=== PATIENT | female | born 1965 | race Caucasian/White ===

== ENCOUNTER 2018-07-24 16:06 | Emergency (ER) | payer OTHER ==
--- NOTE | 2018-07-24 16:27 | PDOC ---
History of Present Illness - General Chief Complaint: Injury Stated Complaint: LEFT ARM RT FOOT PAIN Time Seen by Provider: 07/24/18 16:08 History Source: Patient Exam Limitations: No Limitations - History of Present Illness Initial Comments: 07/24/18 16:31 52 yo F with no past medical history presents to the emergency department after a fall that occurred today at approximately 1pm. Per the patient, she states that she was walking in between a car and sidewalk when she slipped and landed on the ground. Per the patient, she immediately began having right ankle pain and left shoulder pain. Denies head trauma and LOC. Fall was unwitnessed. 07/24/18 16:54 Past History - Past Medical History Allergies/Adverse Reactions: Allergies Allergy/AdvReac Type Severity Reaction Status Date / Time sulfur [From Sulfur-8] Allergy Verified 08/30/15 19:27 Home Medications: Ambulatory Orders Nitrofurantoin Monohyd/M-Cryst [Macrobid -] 100 mg PO BID #14 capsule 08/30/15 - Suicide/Smoking/Psychosocial Hx Smoking Status: No Smoking History: Never smoked Have you smoked in the past 12 months: No Number of Cigarettes Smoked Daily: 0 Hx Alcohol Use: No Drug/Substance Use Hx: No Substance Use Type: None *DC/Admit/Observation/Transfer Diagnosis at time of Disposition: Fall Qualifiers: Encounter type: initial encounter Qualified Code(s): W19.XXXA - Unspecified fall, initial encounter - Discharge Dispostion Disposition: HOME Decision to Admit order: No - Referrals Referrals: Haris Morton MD [Staff Physician] - [facility] [place] [Provider Group] - Patient Instructions Printed Discharge Instructions: How to Prevent Falls Additional Instructions: you were seen in the emergency department for the evaluation of your ankle and shoulder after your fall. there was no fracture or dislocation noted on your xrays. please take motrin and tylenol as directed on the label. please follow up with your primary medical doctor or the one referred to you 1 week after discharge for follow up care and management. please follow up with the orthopedics doctor in 1 week after discharge if you continue to have pain or difficulty moving your should and ankle. please return to the emergency department if you have worsening pain or new concerning symptosm such as confusion, focal weakness, disorientation, headaches, nausea with uncontrollable vomiting, or if your foot or arm have worsening numbness or discoloration. thank you. - Post Discharge Activity
[2018-07-24] MEDS ORDERED: ACETAMINOPHEN 325 MG TABLET (FP) PO ONE (16:30)
[2018-07-24] MEDS ORDERED: ACETAMINOPHEN 325 MG TABLET (FP) ONE (17:03)
[2018-07-24 17:12] VITALS: BP 118/83; PULSE 80; TEMP 98.8; BMI 25.0
--- NOTE | 2018-07-24 17:30 | PDOC ---
Attending Attestation - Resident Resident Name: Ángel Fonseca - ED Attending Attestation I have performed the following: I have examined & evaluated the patient, The case was reviewed & discussed with the resident, I agree w/resident's findings & plan, Exceptions are as noted - HPI HPI: 07/24/18 17:22 52 F presenting to ED after tripping and falling. Pt was walking to her car when she tripped, landing on her L shoulder. Denies headstrike/LOC. Also reports twisting her R ankle during the fall. Denies any preceding lightheadedness/CP/SOB. Pt now with pain in R ankle, though still able to bear weight. Also pain in L shoulder with limited ROM. - Physicial Exam PE: 07/24/18 17:36 GENERAL: Awake, alert, and fully oriented, in no acute distress. HEAD: No signs of trauma EYES: PERRLA, EOMI, sclera anicteric, conjunctiva clear ENT: Auricles normal inspection, hearing grossly normal, nares patent, oropharynx clear without exudates. Moist mucosa NECK: Nontender, no stepoffs, Normal ROM, supple, no lymphadenopathy, JVD, or masses LUNGS: Breath sounds equal, clear to auscultation bilaterally. No wheezes, and no crackles HEART: Regular rate and rhythm, normal S1 and S2, no murmurs, rubs or gallops ABDOMEN: Soft, nontender, normoactive bowel sounds. No guarding, no rebound. No masses EXTREMITIES: + L shoulder with TTP over anterior glenoid, normal passive ROM, active ROM limited 2/2 pain, R ankle with mild tenderness at lateral malleolus, normal ROM, no joint effusion NEUROLOGICAL: Cranial nerves II through XII intact. 5/5 strength and sensation in all extremities, Normal speech, normal gait, normal cerebellar function SKIN: Warm, Dry, normal turgor, no rashes or lesions noted. - Medical Decision Making 07/24/18 17:37 52 F with fall today, now with R ankle and L shoulder pain. Likely sprain, possible rotator cuff injury. - XR R ankle and L shoulder negative for fx/dislocation Pt ambulatory in ED with minimal pain Pt given BECCA wrap and sling, instructed to f/u with orthopedics Pt is well appearing, with normal vitals. Clinically stable for DC at this time. I discussed the physical exam findings, ancillary test results and final diagnoses with the patient. I answered all of the patient's questions. The patient was satisfied with the care received and felt comfortable with the discharge plan and treatment plan. The patient agrees to follow up with the primary care physician within 24-72 hours.
== END 2018-07-24 18:05 | disposition home or self-care (01) ==
LOC: FER 16:06
DX: Z04.3 Encounter for examination and observation following other accident (principal); W18.39XA Other fall on same level, initial encounter; Y93.89 Activity, other specified; Y92.89 Other specified places as the place of occurrence of the external cause
CPT/HCPCS: 73030-TC-LT-FY; 73070-TC-LT-FY; 73610-TC-RT-FY; 73630-TC-RT-FY; 99282-25

== ENCOUNTER 2021-11-12 07:46 | Emergency (ER) | payer OTHER ==
[2021-11-12] MEDS ORDERED: IBUPROFEN 600 MG TABLET (FP) PO ONE (07:58)
[2021-11-12 07:59] VITALS: BP 123/81; PULSE 81; TEMP 97.8; BMI 25.0
== END 2021-11-12 10:16 | disposition home or self-care (01) ==
LOC: FER 07:46
DX: S52.531A Colles' fracture of right radius, initial encounter for closed fracture (principal); S52.614A Nondisplaced fracture of right ulna styloid process, initial encounter for closed fracture
CPT/HCPCS: 73070-TC-RT-FY; 73110-TC-RT-FY; 99284-25; C9803-CS; U0003; U0005